=== PATIENT | male | born 1995 | race Two or more races ===

== ENCOUNTER 2018-05-17 12:03 | Emergency (ER) | payer MEDICAID ==
[~2018-05-17] VITALS: Ht 167.6 cm; Wt 90.7 kg
--- NOTE | 2018-05-17 12:04 | NUR ---
ED Nurse Note: Patient brought in by RA 27 from work. Patient had witnessed seizure at work and bystanders assisted him to the ground, reports no head injury per EMS. Patient also had another full tonic-clonic seizure en route to ER for 30 sec and Versed 5mg given via IV to left hand. Patien is altered. Foaming at the mouth noted. Patient has hx of seizure and taking Keppra per EMS. Placed patient on child monitor. Seizure precaution initiated.
[2018-05-17] MEDS ORDERED: LORazepam Inj 2mg/ml 1ml IV ONE (12:15)
[2018-05-17] MEDS ORDERED: levETIRAcetam 500 MG in D5W 110 ML IV ONE (12:15)
[2018-05-17] MEDS ORDERED: levETIRAcetam 500mg vial IV ONE (12:16)
[2018-05-17 12:28] LABS: HEMATOCRIT 51.7 % (42.0-52.0); HEMOGLOBIN 16.3 G/DL (14.2-18.0); MEAN CORPUSCULAR VOLUME 88 FL (80-99); PLATELET COUNT 327 K/UL (150-450); RED BLOOD COUNT 5.91 M/UL (4.70-6.10); RED CELL DISTRIBUTION WIDTH 12.7 % (11.6-14.8); WHITE BLOOD COUNT 20.1 K/UL (4.8-10.8)
[2018-05-17 12:30] VITALS: BP 137/57
--- NOTE | 2018-05-17 12:36 | NUR ---
ED Nurse Note:pt. had CT head done
[2018-05-17 12:40] LABS: ANION GAP 29 mmol/L (5-15); BLOOD UREA NITROGEN 16 mg/dL (7-18); CALCIUM 9.2 MG/DL (8.5-10.1); CARBON DIOXIDE 10 MMOL/L (21-32); CHLORIDE 104 MMOL/L (98-107); CREATININE 1.2 MG/DL (0.55-1.30); POTASSIUM 4.3 MMOL/L (3.5-5.1); SODIUM 143 MMOL/L (136-145)
[2018-05-17 12:43] VITALS: BP 137/57
[2018-05-17 12:45] LABS: ALANINE AMINOTRANSFERASE 297 U/L (12-78); ALBUMIN 4.4 G/DL (3.4-5.0); ALBUMIN/GLOBULIN RATIO 1.1 (1.0-2.7); ALKALINE PHOSPHATASE 162 U/L (46-116); ASPARTATE AMINO TRANSFERASE 88 U/L (15-37); BILIRUBIN,TOTAL 0.2 MG/DL (0.2-1.0)
--- NOTE | 2018-05-17 13:15 | Diagnostic Imaging Report ---
Indication: Seizure Technique: Continuous helical CT scanning of the head was performed without intravenous contrast material. Axial and coronal 5 mm sections were generated. Radiation dose was minimized using automated exposure control Dose: Total Dose Length Product - DLP 1467.[address] Dose Index - CTDIvol(s) 70.38 mGy. Comparison: none Findings: The ventricular system is normal in size and configuration. There is no shift of midline structures. No abnormal extra-axial fluid collections are noted. There is no evidence of intracerebral bleeding. No other abnormal high or low density areas are noted within the brain. Normal hong-white differentiation. Visualized orbits and sinuses are unremarkable. The calvarium is intact. The mastoids are clear. Impression: Normal CT scan of the head without contrast material. The CT scanner at [facility] is accredited by the [employer] and the scans are performed using protocols designed to limit radiation exposure to as low as reasonably achievable to attain images of sufficient resolution adequate for diagnostic evaluation. Noncontrast
--- NOTE | 2018-05-17 13:26 | NUR ---
ED Nurse Note: pt more responsive follows commands pt placed on 2 liters [place] ermd informed. ermd stated ok to feed pt. pt provided with sandwich and juice.
--- NOTE | 2018-05-17 13:51 | Emergency Room Report ---
History of Present Illness General Chief Complaint: Seizure Source: EMS Present Illness HPI 22-year-old male presents ED for evaluation. Brought in by EMS status post seizure. Witnessed at work today. Questionable head injury. Patient given Versed in the field by EMS. Patient is post ictal but is answering questions. Notes history of seizure and takes Keppra. States that he is compliant with his medication but seizures persist. Denies alcohol or drug use. No other aggravating relieving factors. Denies any other associated symptoms Allergies: Coded Allergies: No Known Allergies (Unverified , 05/17/18) Patient History Past Medical History: seizures Past Surgical History: none Pertinent Family History: none Social History: Denies: smoking, alcohol use, drug use Immunizations: UTD Reviewed Nursing Documentation: PMH: Agreed; PSxH: Agreed Nursing Documentation-PMH Past Medical History: No History, Except For Hx Seizures: Yes Review of Systems All Other Systems: limited Physical Exam Vital Signs Date Time Temp Pulse Resp B/P (MAP) Pulse Ox O2 Delivery O2 Flow Rate FiO2 05/17/18 11:59 98.4 155 32 149/66 99 Non-Rebreather 15.0 Sp02 EP Interpretation: reviewed, normal General Appearance: lethargic, Postictal Head: normocephalic Eyes: bilateral eye normal inspection, bilateral eye PERRL ENT: normal ENT inspection Neck: normal inspection Respiratory: chest non-tender, lungs clear, normal breath sounds, speaking full sentences Cardiovascular #1: regular rate, rhythm, no edema Gastrointestinal: normal inspection Rectal: deferred Genitourinary: no CVA tenderness Musculoskeletal: normal inspection Neurologic: other - postictal Psychiatric: other - postictal Skin: normal inspection Lymphatic: normal inspection Medical Decision Making Diagnostic Impression: Primary Impression: Seizure disorder ER Course Hospital Course 22-year-old M presents to ED status post seizure. Differential diagnosis includes- breakthrough seizure, alcohol abuse, noncompliance with medication Clinical course Patient placed on stretcher. Initial history and physical I ordered labs, IV fluids, Keppra, CT brain Labs-electrolytes okay, no leukocytosis, hemoglobin/hematocrit stable. CT Brain ok Patient allowed to rest is now awake alert oriented x3. Patient states that he is compliant with his Keppra. When I asked the patient how he doses his medication he states that he takes the first dose 11 AM second dose at noon and third dose at 2 PM. I explained to the patient this is not appropriate dosing of this medication. He needs to take the medications more regularly. Safe for discharge or close outpatient follow-up. States he has a PMD. States he has medication at home Diagnosis - seizure disorder stable and discharged to home. Followup with PMD. Return to ED if symptoms recur or worsen Labs Test 05/17/18 12:13 White Blood Count 20.1 K/UL (4.8-10.8) Red Blood Count 5.91 M/UL (4.70-6.10) Hemoglobin 16.3 G/DL (14.2-18.0) Hematocrit 51.7 % (42.0-52.0) Mean Corpuscular Volume 88 FL (80-99) Mean Corpuscular Hemoglobin 27.6 PG (27.0-31.0) Mean Corpuscular Hemoglobin Concent 31.6 G/DL (32.0-36.0) Red Cell Distribution Width 12.7 % (11.6-14.8) Platelet Count 327 K/UL (150-450) Mean Platelet Volume 9.7 FL (6.5-10.1) Neutrophils (%) (Auto) % (45.0-75.0) Lymphocytes (%) (Auto) % (20.0-45.0) Monocytes (%) (Auto) % (1.0-10.0) Eosinophils (%) (Auto) % (0.0-3.0) Basophils (%) (Auto) % (0.0-2.0) Differential Total Cells Counted 100 Neutrophils % (Manual) 64 % (45-75) Lymphocytes % (Manual) 30 % (20-45) Monocytes % (Manual) 4 % (1-10) Eosinophils % (Manual) 2 % (0-3) Basophils % (Manual) 0 % (0-2) Band Neutrophils 0 % (0-8) Platelet Estimate Adequate Platelet Morphology Normal Red Blood Cell Morphology Normal Sodium Level 143 MMOL/L (136-145) Potassium Level 4.3 MMOL/L (3.5-5.1) Chloride Level 104 MMOL/L (98-107) Carbon Dioxide Level 10 MMOL/L (21-32) Anion Gap 29 mmol/L (5-15) Blood Urea Nitrogen 16 mg/dL (7-18) Creatinine 1.2 MG/DL (0.55-1.30) Estimat Glomerular Filtration Rate > 60 mL/min (>60) Glucose Level 127 MG/DL (74-106) Calcium Level 9.2 MG/DL (8.5-10.1) Total Bilirubin 0.2 MG/DL (0.2-1.0) Aspartate Amino Transf (AST/SGOT) 88 U/L (15-37) Alanine Aminotransferase (ALT/SGPT) 297 U/L (12-78) Alkaline Phosphatase 162 U/L (46-116) Total Protein 8.3 G/DL (6.4-8.2) Albumin 4.4 G/DL (3.4-5.0) Globulin 3.9 g/dL Albumin/Globulin Ratio 1.1 (1.0-2.7) Urine Opiates Screen Negative (NEGATIVE) Acetaminophen Level < 2 MCG/ML (10-30) Urine Barbiturates Screen Negative (NEGATIVE) Phencyclidine (PCP) Screen Negative (NEGATIVE) Urine Amphetamines Screen Negative (NEGATIVE) Urine Benzodiazepines Screen Positive (NEGATIVE) Urine Cocaine Screen Negative (NEGATIVE) Urine Marijuana (THC) Screen Negative (NEGATIVE) Serum Alcohol < 3 mg/dL EKG Diagnostic Results Rate: tachycardiac Rhythm: NSR ST Segments: no acute changes ASA given to the pt in ED: No Rhythm Strip Diag. Results EP Interpretation: yes Rhythm: NSR, no PVC's, no ectopy CT/MRI/US Diagnostic Results CT/MRI/US Diagnostic Results : Imaging Test Ordered: CT Head Impression no acute process Last Vital Signs Date Time Temp Pulse Resp B/P (MAP) Pulse Ox O2 Delivery O2 Flow Rate FiO2 05/17/18 13:24 116 29 Nasal Cannula 2.0 05/17/18 12:43 98.4 137/57 99 Status: improved Disposition: HOME, SELF-CARE Condition: Stable Milton Lay MD May 17, 2018 13:51
[2018-05-17 14:37] VITALS: BP 138/60
[2018-05-17 16:50] VITALS: BP 136/65
--- NOTE | 2018-05-17 17:36 | NUR ---
ED Nurse Note: lapse of conscienceness for filled out and faxed pt given aci verbalized understanding and ambulated out of ed with father.
[2018-05-17 17:41] VITALS: BP 136/65
--- NOTE | 2018-05-18 17:29 | Cardiology Report ---
APPROVED REPORT EKG Measurement Heart [id number] RI 128P [id number] Sinus tachycardia Rightward axis Borderline ECG
== END 2018-05-17 17:43 | disposition home or self-care (01) ==
LOC: EDBD 12:03 → EMR 13:12
DX: G40.909 Epilepsy, unspecified, not intractable, without status epilepticus (principal); Z79.899 Other long term (current) drug therapy
CPT/HCPCS: 36415; 70450; 80053; 80307; 80329; 82962; 85007; 85025; 93005; 96361; 96365; 96375; 99284; J1953